=== PATIENT | male | born 1965 | race Caucasian/White ===

== ENCOUNTER 2019-04-18 07:49 | Emergency (ER) | payer OTHER ==
[~2019-04-18] VITALS: Ht 188 cm; Wt 83.9 kg
--- NOTE | 2019-04-18 07:59 | NUR ---
DR FIELD AT BEDSIDE FOR EVAL.
[2019-04-18] MEDS ORDERED: ALBUTEROL FS 2.5 MG/3 ML VIAL.NEB CONTNEB ONE (08:00)
[2019-04-18] MEDS ORDERED: IPRATROPIUM NEB FS 0.5 MG/2.5 ML AMPUL.NEB NEB ONE (08:00)
[2019-04-18] MEDS ORDERED: predniSONE 20 MG TABLET PO ONE (08:00)
--- NOTE | 2019-04-18 08:00 | NUR ---
PT AAOX4, NO ACUTE DISTRESS NOTED, UNLABORED AND EVEN BREATHING. PT CONNECTED TO THE MONITOR. WILL CONTINUE TO MONITOR.
[2019-04-18] MEDS ORDERED: predniSONE 20 MG TABLET ONE (08:03)
[2019-04-18] MEDS ORDERED: IPRATROPIUM NEB FS 0.5 MG/2.5 ML AMPUL.NEB ONE (08:04)
[2019-04-18] MEDS ORDERED: ALBUTEROL FS 2.5 MG/3 ML VIAL.NEB ONE (08:04)
--- NOTE | 2019-04-18 08:05 | NUR ---
RT AT BEDSIDE FOR BREATHING TREATMENT.
[2019-04-18] MEDS ORDERED: HYDROCODONE/APAP 5/325MG 1 EACH TABLET ONE (08:56)
[2019-04-18] MEDS ORDERED: HYDROCODONE/APAP 5/325MG 1 EACH TABLET PO ONE (09:00)
--- NOTE | 2019-04-18 09:15 | NUR ---
Patient discharged to home in stable condition. Written and verbal after care instructions given. Patient verbalizes understanding of instruction.
[2019-04-18 09:34] VITALS: BP 152/94
== END 2019-04-18 09:35 | disposition home or self-care (01) ==
LOC: ER 08:09
DX: S82.434A Nondisplaced oblique fracture of shaft of right fibula, initial encounter for closed fracture (principal); J44.1 Chronic obstructive pulmonary disease with (acute) exacerbation; F10.10 Alcohol abuse, uncomplicated; F17.200 Nicotine dependence, unspecified, uncomplicated; Y90.9 Presence of alcohol in blood, level not specified; X50.1XXA Overexertion from prolonged static or awkward postures, initial encounter; Y93.89 Activity, other specified; Y92.89 Other specified places as the place of occurrence of the external cause; Y99.8 Other external cause status
CPT/HCPCS: 29515; 71045; 73610; 94640; 99283; J7512

== ENCOUNTER 2019-04-20 07:42 | Emergency (ER) | payer OTHER ==
[~2019-04-20] VITALS: Ht 180.3 cm; Wt 79.4 kg
[2019-04-20 07:46] VITALS: BP 140/86
--- NOTE | 2019-04-20 09:19 | NUR ---
Patient discharged to home in stable condition. Written and verbal after care instructions given. Patient verbalizes understanding of instruction.
== END 2019-04-20 09:18 | disposition home or self-care (01) ==
LOC: ER 07:45
DX: S82.891D Other fracture of right lower leg, subsequent encounter for closed fracture with routine healing (principal); J44.9 Chronic obstructive pulmonary disease, unspecified; F17.200 Nicotine dependence, unspecified, uncomplicated; X58.XXXD Exposure to other specified factors, subsequent encounter